=== PATIENT | female | born 1995 | race American Indian/Alaskan Native ===

== ENCOUNTER 2017-09-15 11:56 | Emergency (ER) | payer OTHER ==
[2017-09-15 14:34] VITALS: BP 106/58
[2017-09-15] MEDS ORDERED: NACL 0.9% 1000 ML 1,000 ML IV ONE (14:42)
[2017-09-15] MEDS ORDERED: TYLENOL PO ONE (14:43)
[2017-09-15] MEDS ORDERED: PROVENTIL IH ONE (14:43)
--- NOTE | 2017-09-15 14:50 | Emergency Department Report ---
ED General Adult HPI - General Chief complaint: Upper Respiratory Infection Stated complaint: CONGESTION, COUGH, UTI Time Seen by Provider: 09/15/17 14:15 Source: patient Mode of arrival: Ambulatory Limitations: No Limitations - History of Present Illness Initial comments: PT states she has been sick for four days. PT states she has nasal congestion and chest congestion, + cough PT states she is 3 months . , has first [facility] appointment scheduled on 10-03-17. She states she has had a previous pelvic US this . PT denies vaginal bleeding. PT states she thinks she has a UTI due to vaginal itching. PT states she has a hx of asthma. No meds at home. She states all of her medication is [place] of state, with her mother. MD Complaint: C/c/c and vaginal itching -: Gradual, days(s) (4) Location: face, chest, genitals Severity scale (0 -10): 8 Quality: aching, other (itchy ) Consistency: constant Improves with: other (warm tea and cranberry juice ) Associated Symptoms: cough, loss of appetite, malaise, nausea/vomiting. denies : fever/chills, shortness of breath - Related Data Previous Rx's Medication Instructions Recorded Last Taken Type Albuterol Sulfate [Ventolin HFA] 2 puff IH Q4H PRN #1 hfa.aer.ad 09/15/17 Unknown Rx Vit No.130/Iron/Folic 1 each PO DAILY #30 tablet 09/15/17 Unknown Rx [ Tablet] guaiFENesin [Robitussin] 200 mg PO Q6HR PRN #12 tablet 09/15/17 Unknown Rx metroNIDAZOLE [Flagyl] 500 mg PO Q12HR #14 tab 09/15/17 Unknown Rx Allergies Allergy/AdvReac Type Severity Reaction Status Date / Time No Known Allergies Allergy Unverified 09/15/17 12:39 ED Review of Systems ROS: Stated complaint: CONGESTION, COUGH, UTI Other details as noted in HPI Comment: All other systems reviewed and negative Constitutional: denies: chills, fever ENT: congestion. denies: ear pain Respiratory: cough, wheezing, other (pt states she feels chest congestion ) Gastrointestinal: nausea, vomiting. denies: abdominal pain Genitourinary: discharge, other (itching ). denies: dysuria ED Past Medical Hx - Past Medical History Previous Medical History?: No - Surgical History Past Surgical History?: No - Social History Smoking Status: Never Smoker Substance Use Type: None - Medications Home Medications: Home Medications Medication Instructions Recorded Confirmed Last Taken Type Albuterol Sulfate [Ventolin HFA] 2 puff IH Q4H PRN #1 hfa.aer.ad 09/15/17 Unknown Rx Vit No.130/Iron/Folic 1 each PO DAILY #30 tablet 09/15/17 Unknown Rx [ Tablet] guaiFENesin [Robitussin] 200 mg PO Q6HR PRN #12 tablet 09/15/17 Unknown Rx metroNIDAZOLE [Flagyl] 500 mg PO Q12HR #14 tab 09/15/17 Unknown Rx ED Physical Exam - General Limitations: No Limitations General appearance: alert, in no apparent distress - Head Head exam: Present: atraumatic, normocephalic, normal inspection - Eye Eye exam: Present: normal appearance, PERRL, EOMI. Absent: conjunctival injection - ENT ENT exam: Present: normal exam, normal orophraynx, mucous membranes moist, normal external ear exam - Neck Neck exam: Present: normal inspection, full ROM. Absent: lymphadenopathy - Respiratory Respiratory exam: Present: normal lung sounds bilaterally. Absent: respiratory distress, wheezes, chest wall tenderness, accessory muscle use, decreased breath sounds - Cardiovascular Cardiovascular Exam: Present: normal rhythm, tachycardia - GI/Abdominal GI/Abdominal exam: Present: soft, normal bowel sounds. Absent: distended, tenderness, guarding, rebound - External exam: Present: other (white vaginal discharge noted ). Absent: bleeding Speculum exam: Present: vaginal discharge (thin white vaginal discharge ), other (female airfield manager, Leslee at bedside ). Absent: normal speculum exam ( cervix closed, not friable, copious amount of thin white discharge noted), vaginal bleeding, foreign body Bi-manual exam: Present: normal bi-manual exam. Absent: cervical motion tendernes, adnexal tenderness, adnexal mass, uterine tenderness - Extremities Exam Extremities exam: Present: normal inspection, full ROM - Back Exam Back exam: Present: normal inspection, full ROM. Absent: CVA tenderness (R), CVA tenderness (L) - Neurological Exam Neurological exam: Present: alert, altered, normal gait - Psychiatric Psychiatric exam: Present: normal affect, normal mood - Skin Skin exam: Present: warm, dry, intact, normal color ED Course Vital Signs 09/15/17 09/15/17 09/15/17 12:39 14:33 15:59 Temperature 99.0 F 99.4 F Pulse Rate 115 H 118 H Pulse Rate [ 100 H Bilateral Upper Lobe] Respiratory 17 16 Rate Respiratory 18 Rate [Bilateral Upper Lobe] Blood Pressure 99/70 Blood Pressure 106/58 [Left] O2 Sat by Pulse 100 100 Oximetry 09/15/17 16:08 Temperature Pulse Rate Pulse Rate [ 105 H Bilateral Upper Lobe] Respiratory Rate Respiratory 20 Rate [Bilateral Upper Lobe] Blood Pressure Blood Pressure [Left] O2 Sat by Pulse Oximetry - Reevaluation(s) Reevaluation #1: 09/15/17 14:53 PT aware of plan of care. Reevaluation #2: 09/15/17 16:54 Pt aware of lab results. PT treated with albuterol neb, IV fluids and Tylenol. PT states she is feeling better. PT has no questions at this time. Lungs remain clear, no wheezing noted at this time. - Pulse Oximetry Interpretation Digit-Finger Initial Pulse Oximetry Readin Actions Taken: none ED Medical Decision Making - Lab Data Result diagrams: 09/15/17 15:06 09/15/17 15:06 Lab Results 09/15/17 09/15/17 09/15/17 Range/Units 14:45 15:06 15:06 WBC 4.6 (4.5-11.0) K/mm3 RBC 3.99 (3.65-5.03) M/mm3 Hgb 11.8 (10.1-14.3) gm/dl Hct 35.0 (30.3-42.9) % MCV 88 (79-97) fl MCH 30 (28-32) pg MCHC 34 (30-34) % RDW 13.5 (13.2-15.2) % Plt Count 165 (140-440) K/mm3 Lymph % (Auto) 23.5 (13.4-35.0) % [place] % (Auto) 13.9 H (0.0-7.3) % Eos % (Auto) 0.1 (0.0-4.3) % Baso % (Auto) 0.6 (0.0-1.8) % Lymph # 1.1 L (1.2-5.4) K/mm3 [place] # 0.6 (0.0-0.8) K/mm3 Eos # 0.0 (0.0-0.4) K/mm3 Baso # 0.0 (0.0-0.1) K/mm3 Seg Neutrophils % 61.9 (40.0-70.0) % Seg Neutrophils # 2.9 (1.8-7.7) K/mm3 Sodium 137 (137-145) mmol/L Potassium 3.6 (3.6-5.0) mmol/L Chloride 97.0 L (98-107) mmol/L Carbon Dioxide 25 (22-30) mmol/L Anion Gap 19 mmol/L BUN 8 (7-17) mg/dL Creatinine 0.5 L (0.7-1.2) mg/dL Estimated GFR > 60 ml/min BUN/Creatinine Ratio 16 % Glucose 80 (65-100) mg/dL Calcium 9.1 (8.4-10.2) mg/dL Total Bilirubin 0.20 (0.1-1.2) mg/dL AST 20 (5-40) units/L ALT 15 (7-56) units/L Alkaline Phosphatase 37 (35-129) units/L Total Protein 7.0 (6.3-8.2) g/dL Albumin 4.0 (3.9-5) g/dL Albumin/Globulin Ratio 1.3 % Urine Color Yellow (Yellow) Urine Turbidity Slightly-cloudy (Clear) Urine pH 6.0 (5.0-7.0) Ur Specific [place] 1.028 (1.003-1.030) Urine Protein 30 mg/dl (Negative) mg/dL Urine Glucose (UA) Neg (Negative) mg/dL Urine Ketones Neg (Negative) mg/dL Urine Blood Neg (Negative) Urine Nitrite Neg (Negative) Ur Reducing Substances Not Reportable Urine Bilirubin Neg (Negative) Urine Ictotest Not Reportable Urine Urobilinogen 4.0 (<2.0) mg/dL Ur Leukocyte Esterase Lg (Negative) Urine WBC (Auto) 5.0 (0.0-6.0) /HPF Urine RBC (Auto) 7.0 (0.0-6.0) /HPF U Epithel Cells (Auto) 37.0 H (0-13.0) /HPF Urine Bacteria (Auto) 1+ (Negative) /HPF Ur Transition Epith Cell 1 /HPF Urine Mucus 2+ /HPF Urine HCG, Qual Positive A (Negative) UA contaminated. PT does not have dysuria - Differential Diagnosis vaginitis, uti, std, uri, asthma exacerbation Critical Care Time: No Critical care attestation.: If time is entered above; I have spent that time in minutes in the direct care of this critically ill patient, excluding procedure time. ED Disposition Clinical Impression: URI with cough and congestion, Bacterial vaginosis Qualifiers: Weeks of gestation: unspecified Qualified Code(s): Z34.90 - Encounter for supervision of normal , unspecified, unspecified trimester Disposition: TO HOME OR SELFCARE Is pt being admited?: No Does the pt Need Aspirin: No Condition: Stable Instructions: Bacterial Vaginosis (ED), Cold Symptoms (ED), Acute Cough (ED) Additional Instructions: Rest Increase fluids No alcohol with Flagyl OTC Tylenol as needed for fever or aches Follow up with [facility] as scheduled Follow up with PCP in 3-5 days Return to the ED if worsening or concerns Prescriptions: Albuterol Sulfate [Ventolin HFA] 2 puff IH Q4H PRN #1 hfa.aer.ad PRN Reason: Shortness Of Breath guaiFENesin [Robitussin] 200 mg PO Q6HR PRN #12 tablet PRN Reason: Congestion metroNIDAZOLE [Flagyl] 500 mg PO Q12HR #14 tab Vit No.130/Iron/Folic [ Tablet] 1 each PO DAILY #30 tablet Referrals: JOSUE HURST MD [Primary Care Provider] - 3-5 Days ARMANDO JONES MD [Staff Physician] - 3-5 Days Forms: STI Treatment and Prevention Time of Disposition: 16:58
[2017-09-15 15:09] LABS: HCG Qualitative,Urine Positive (Negative)
[2017-09-15 15:11] LABS: Bacteria,Urine 1+ /HPF (Negative); Bilirubin,Urine NEG (Negative); Blood,Urine NEG (Negative); Color,Urine Yellow (Yellow); Mucus,Urine 2+ /HPF; Nitrite,Urine NEG (Negative)
[2017-09-15 15:26] LABS: Basophils % (Auto) 0.6 % (0.0-1.8); Eosinophils % (Auto) 0.1 % (0.0-4.3); Hemoglobin 11.8 gm/dl (10.1-14.3); Lymphocytes # (Auto) 1.1 K/mm3 (1.2-5.4); Lymphocytes % (Auto) 23.5 % (13.4-35.0); Mean Corpuscular HGB Conc 34 % (30-34); Mean Corpuscular Hemoglobin 30 pg (28-32); Mean Corpuscular Volume 88 fl (79-97); Monocytes # (Auto) 0.6 K/mm3 (0.0-0.8); Monocytes % (Auto) 13.9 % (0.0-7.3); Platelet Count 165 K/mm3 (140-440); Red Blood Count 3.99 M/mm3 (3.65-5.03); Red Cell Distribution Width 13.5 % (13.2-15.2)
[2017-09-15 15:42] LABS: Alanine Aminotransferase 15 units/L (7-56); BUN/Creatinine Ratio 16; Blood Urea Nitrogen 8 mg/dL (7-17); Calcium 9.1 mg/dL (8.4-10.2); Hemolysis Index 5
== END 2017-09-15 17:21 | disposition home or self-care (01) ==
LOC: ED 11:56
DX: O23.591 Infection of other part of genital tract in pregnancy, first trimester (principal); N76.0 Acute vaginitis; O99.511 Diseases of the respiratory system complicating pregnancy, first trimester; J06.9 Acute upper respiratory infection, unspecified; Z3A.00 Weeks of gestation of pregnancy not specified
CPT/HCPCS: 36415; 80053; 81001; 81025; 85025; 87210; 87591; 94640; 96360; 99283; J7030